=== PATIENT | male | born 1950 | race Caucasian/White ===

== ENCOUNTER 2021-03-17 09:46 | Outpatient (CLI) | payer MEDICARE, SELFPAY ==
[2021-03-17 10:13] LABS: Basophils Absolute Auto 0.02 K/mm3 (0.00-0.10); Basophils Percent Auto 0.3 % (0.0-1.0); Eosinophils Absolute Auto 0.18 K/mm3 (0.02-0.50); Eosinophils Percent Auto 2.8 % (1.0-6.0); Hematocrit 38.2 % (37.0-46.0); Hemoglobin 12.7 g/dL (12.4-15.3); Immature Granulocyte Absolute 0.02 K/mm3 (0.00-0.00); Immature Granulocyte Percent A 0.3 % (0.0-0.0); Lymphocytes Absolute Auto 1.71 K/mm3 (1.10-4.50); Lymphocytes Percent Auto 26.7 % (18.0-42.0); Mean Corpuscular HGB Conc 33.2 g/dL (32.0-36.0); Mean Corpuscular Hemoglobin 31.1 pg (27.0-31.0); Mean Corpuscular Volume 93.4 fL (78.0-102.0); Mean Platelet Volume 10.7 fl (8.7-11.0); Monocytes Absolute Auto 0.55 K/mm3 (0.10-0.90); Monocytes Percent Auto 8.6 % (2.0-11.0); Neutrophils Absolute Auto 3.9 K/mm3 (1.7-7.2); Neutrophils Percent Auto 61.3 % (50.0-70.0); Platelet Count Result 158 K/mm3 (150-420); Red Blood Count 4.09 M/mm3 (4.70-6.10); Red Cell Distribution Width 14.6 % (11.6-14.4); White Blood Count 6.4 K/mm3 (4.8-10.8)
[2021-03-17 10:15] VITALS: PULSE 80; O2SAT 97
[2021-03-17 10:18] VITALS: PULSE 69; O2SAT 86
[2021-03-17 10:21] LABS: Appearance Urine Clear (Clear); Bilirubin Urine Negative (Negative); Color Urine Light Yellow (Yellow); Glucose Urine UA Negative (Negative); Ketones Urine Negative (Negative); Leukocyte Esterase Ur Negative (Negative); Nitrate Urine Negative (Negative); Protein Urine Negative (Negative); Specific Grav Ur 1.015 (1.010-1.020); Urobilinogen Urine 0.2 mg/dL (0.2-1.0)
[2021-03-17 10:22] VITALS: PULSE 139; O2SAT 86
[2021-03-17 10:25] VITALS: PULSE 80; O2SAT 96
[2021-03-17 10:25] LABS: Hemoglobin A1C 9.9 % (<5.7)
[2021-03-17 10:31] LABS: Add Urine Microscopic? YES; Bacteria Urine None seen /hpf; Blood Urine Trace-Intact (Negative); WBC Urine None seen /hpf (0-3)
[2021-03-17 10:40] LABS: Creatinine Urine 65.23 mg/dL (40-278); MALB Creatinine Ratio 19.9 mg/g (0-30); Microalbumin Urine Random < 13.0 mg/L
[2021-03-17 10:56] LABS: Alanine Aminotransferase 14 U/L (16-63); Albumin Level 3.2 g/dL (3.4-5.0); Alkaline Phosphatase 78 U/L (46-116); Anion Gap 7 mmol/L (8-16); Aspartate Amino Transferase 19 U/L (15-37); Bilirubin,Total 0.5 mg/dL (0.00-1.00); Blood Urea Nitrogen 16 mg/dL (7-18); Calcium 8.3 mg/dL (8.5-10.1); Carbon Dioxide 29 mmol/L (21-32); Chloride 95 mmol/L (98-108); Estimated Glomerular Filt Rate 60; Glucose 276 mg/dL (70-99); Osmolality Calculated 283 mOsm/kg (285-295); Potassium 4.2 mmol/L (3.5-5.1); Sodium 131 mmol/L (136-145); Thyroid Stimulating Hormone 0.58 uIU/mL (0.36-3.74); Total Protein 7.2 g/dL (6.4-8.2)
--- NOTE | 2021-03-17 11:26 | HOMEO2EVAL ---
Evaluation was performed at [facility] Home Oxygen Evaluation RC: Home Oxygen (O2) Evaluation Start: 03/17/21 10:50 Freq: Status: Active Protocol: RPE Activity Type Activity Date Activity User E-Sign Co-Sign Detail Recorded Client Recorded Date Recorded By Document 03/17/21 10:15 JENNIFER [id number] 03/17/21 11:26 JENNIFER Document 03/17/21 10:18 JENNIFER [id number] 03/17/21 11:26 JENNIFER Document 03/17/21 10:22 JENNIFER [id number] 03/17/21 11:26 JENNIFER Document 03/17/21 10:25 JENNIFER [id number] 03/17/21 11:26 JENNIFER 03/17/21 03/17/21 03/17/21 10:15 10:18 10:22 Home O2 Evaluation Test Phase Resting Exercise Exercise Oxygen Delivery Room Air Room Air Nasal Cannula Oxygen Flow Rate (L/min) 1 Pulse Oximetry (90-100 %) 97 86 L 86 L Pulse Rate (60-100 beats/min) 80 69 139 H Activity Tolerance Fair Fair Rating of Perceived Dyspnea (PD) +3 Moderate +3 Moderate Difficulty, But Difficulty, But Can Continue Can Continue Rate of Perceived Exertion (PE) 15 Hard 16 Ambulation Distance (feet) 340 400 Ambulation Distance (meters) 103.62 121.91 Home Oxygen Evaluation Comments Will begin pt. c/o hip, will increase exercise on knee pain and oxygen to 2 lpm room air shortness of breath. PLB encouraged. Will add 1 lpm oxygen via nasal cannula Treatment Charges O2 Evaluation - Outpatient 03/17/21 10:25 Home O2 Evaluation Test Phase Exercise Oxygen Delivery Nasal Cannula Oxygen Flow Rate (L/min) 2 Pulse Oximetry (90-100 %) 96 Pulse Rate (60-100 beats/min) 80 Activity Tolerance Fair Rating of Perceived Dyspnea (PD) +3 Moderate Difficulty, But Can Continue Rate of Perceived Exertion (PE) 13 Somewhat Hard Ambulation Distance (feet) 50 Ambulation Distance (meters) 15.23 Home Oxygen Evaluation Comments Sp02 maintained >92% on 2 lpm. Treatment Charges
== END 2021-03-17 09:47 | disposition home or self-care (01) ==
PROVIDERS: PCP Family Medicine; Visit Provider Family Medicine
DX: J44.1 Chronic obstructive pulmonary disease with (acute) exacerbation (principal); E11.9 Type 2 diabetes mellitus without complications
CPT/HCPCS: 36415; 80053; 81001; 82043; 83036; 84443; 85025; 94618

== ENCOUNTER 2021-03-21 11:21 | Outpatient (CLI) | payer MEDICARE, SELFPAY ==
[2021-03-21 13:42] LABS: SARS-CoV-2 Ag Positive (Negative)
== END 2021-03-21 11:22 | disposition home or self-care (01) ==
LOC: CHSLAB 11:23
PROVIDERS: PCP Family Medicine; Visit Provider Family Medicine
DX: U07.1 COVID-19 (principal); R05.9 Cough, unspecified
CPT/HCPCS: 87426; C9803

== ENCOUNTER 2021-05-09 09:11 | Outpatient (RCR) | payer MEDICARE, SELFPAY | END 2021-06-08 23:59 | disposition home or self-care (01) | LOC: CHSWOUND 09:11 | PROVIDERS: PCP Family Medicine; Visit Provider Nurse Practitioner Family | DX: I89.0 Lymphedema, not elsewhere classified (principal); E11.9 Type 2 diabetes mellitus without complications; G20 Parkinson's disease; I50.9 Heart failure, unspecified; J44.9 Chronic obstructive pulmonary disease, unspecified | CPT/HCPCS: 99212; G0463 ==

== ENCOUNTER 2021-06-10 14:32 | Outpatient (CLI) | payer MEDICARE, SELFPAY ==
--- NOTE | ~2021-06-10 | XR_ITS ---
EXAMINATION: XR knee RT 3V DATE: 06/10/2021 15:02 INDICATION: Right knee pain. TECHNIQUE: 3 views of right knee were obtained. COMPARISON: None. FINDINGS: Bone alignment is normal. No fracture. There is mild tricompartmental osteoarthritis. There is chondrocalcinosis of the menisci. No knee joint effusion. IMPRESSION: 1. Mild right knee osteoarthritis. Reviewed, dictated and finalized at location B.
== END 2021-06-10 14:33 | disposition home or self-care (01) ==
LOC: CHSIMG 14:34
PROVIDERS: PCP Family Medicine; Visit Provider Family Medicine
DX: M25.561 Pain in right knee (principal)
CPT/HCPCS: 73562

== ENCOUNTER 2021-12-01 15:33 | Outpatient (CLI) | payer MEDICARE, SELFPAY ==
[2021-12-01 16:07] LABS: Basophils Absolute Auto 0.07 K/mm3 (0.00-0.10); Basophils Percent Auto 0.7 % (0.0-1.0); Eosinophils Percent Auto 2.9 % (1.0-6.0); Hematocrit 40.1 % (37.0-46.0); Hemoglobin 12.9 g/dL (12.4-15.3); Immature Granulocyte Absolute 0.03 K/mm3 (0.00-0.00); Immature Granulocyte Percent A 0.3 % (0.0-0.0); Lymphocytes Percent Auto 19.6 % (18.0-42.0); Mean Corpuscular HGB Conc 32.2 g/dL (32.0-36.0); Mean Corpuscular Hemoglobin 29.6 pg (27.0-31.0); Mean Platelet Volume 10.9 fl (8.7-11.0); Monocytes Absolute Auto 0.84 K/mm3 (0.10-0.90); Monocytes Percent Auto 8.2 % (2.0-11.0); Neutrophils Percent Auto 68.3 % (50.0-70.0); Platelet Count Result 195 K/mm3 (150-420); Red Blood Count 4.36 M/mm3 (4.70-6.10); Red Cell Distribution Width 14.6 % (11.6-14.4); White Blood Count 10.2 K/mm3 (4.8-10.8)
[2021-12-01 16:19] LABS: Hemoglobin A1C 8.6 % (<5.7)
[2021-12-01 16:26] LABS: Alanine Aminotransferase 14 U/L (16-63); Albumin Level 3.6 g/dL (3.4-5.0); Alkaline Phosphatase 70 U/L (46-116); Anion Gap 8 mmol/L (8-16); Aspartate Amino Transferase 18 U/L (15-37); Bilirubin,Total 0.8 mg/dL (0.00-1.00); Blood Urea Nitrogen 17 mg/dL (7-18); Calcium 8.5 mg/dL (8.5-10.1); Carbon Dioxide 30 mmol/L (21-32); Chloride 100 mmol/L (98-108); Estimated Glomerular Filt Rate 58; Glucose 165 mg/dL (70-99); Osmolality Calculated 291 mOsm/kg (285-295); Potassium 3.9 mmol/L (3.5-5.1); Sodium 138 mmol/L (136-145); Total Protein 7.4 g/dL (6.4-8.2)
[2021-12-01 16:45] LABS: Influenza A QL RT-PCR Negative (Negative); Influenza B QL RT-PCR Negative (Negative); SARS-CoV-2 RNA PCR Negative (Negative)
== END 2021-12-01 15:34 | disposition home or self-care (01) ==
LOC: CHSLAB 15:36
PROVIDERS: PCP Family Medicine; Visit Provider Family Medicine
DX: E11.9 Type 2 diabetes mellitus without complications (principal); R05.1 Acute cough; Z20.822 Contact with and (suspected) exposure to COVID-19
CPT/HCPCS: 36415; 80053; 83036; 85025; 87502; C9803; U0003; U0005

== ENCOUNTER 2022-05-11 12:12 | Outpatient (CLI) | payer MEDICARE, SELFPAY ==
--- NOTE | ~2022-05-11 | XR_ITS ---
EXAMINATION: XR ribs RT 2V w CXR 2V INDICATION: Right rib pain TECHNIQUE: PA and lateral views of the chest and 3 views of the right ribs were obtained on eight rad iographs. COMPARISON: None. FINDINGS: The lungs are free of acute opacities. Calcified pleural plaques are noted bilaterally. No pleural effusion or pneumothorax. The cardiomediastinal silhouette is normal. There are bridging oste ophytes at multiple levels in the spine, consistent with diffuse idiopathic skeletal hyperostosis (DI SH). No displaced rib fracture is identified. IMPRESSION: 1. No acute cardiopulmonary abnormality or evidence of displaced rib fracture. Calcified pleural jose ques which can be seen in the setting of prior asbestos exposure. Reviewed, dictated and finalized at location L. IMPRESSION: 1. No acute cardiopulmonary abnormality or evidence of displaced rib fracture. Calcified pleural plaques which can be seen in the setting of prior asbestos e xposure.
== END 2022-05-11 12:13 | disposition home or self-care (01) ==
LOC: CHSIMG 12:14
PROVIDERS: PCP Family Medicine; Visit Provider Family Medicine
DX: R07.89 Other chest pain (principal)
CPT/HCPCS: 71046; 71100

== ENCOUNTER 2022-06-22 13:55 | Outpatient (CLI) | payer MEDICARE, SELFPAY ==
--- NOTE | ~2022-06-22 | XR_ITS ---
EXAMINATION: XR elbow RT min 3V DATE: 06/22/2022 14:42 INDICATION: Right elbow pain and swelling TECHNIQUE: Anteroposterior, two oblique and lateral views of the right elbow were obtained. COMPARISON: None. FINDINGS: Alignment is normal. No fracture or joint effusion. Joint spaces are normal. Soft tissues are unremar kable. IMPRESSION: 1. Negative right elbow radiographs. Reviewed, dictated and finalized at location L.
[2022-06-22 14:29] LABS: Appearance Urine Clear (Clear); Bilirubin Urine Negative (Negative); Blood Urine Negative (Negative); Color Urine Light Yellow (Yellow); Glucose Urine UA Negative (Negative); Ketones Urine Negative (Negative); Leukocyte Esterase Ur Negative (Negative); Nitrate Urine Negative (Negative); Protein Urine Negative (Negative); Urobilinogen Urine 0.2 mg/dL (0.2-1.0)
[2022-06-22 14:31] LABS: Add Urine Microscopic? NO
[2022-06-22 15:54] LABS: Anion Gap 8 mmol/L (8-16); Blood Urea Nitrogen 21 mg/dL (7-18); Carbon Dioxide 32 mmol/L (21-32); Chloride 97 mmol/L (98-108); Potassium 4.4 mmol/L (3.5-5.1); Sodium 137 mmol/L (136-145)
[2022-06-22 15:55] LABS: Alanine Aminotransferase 10 U/L (16-63); Aspartate Amino Transferase 16 U/L (15-37); Calcium 9.2 mg/dL (8.5-10.1); Creatine Kinase 87 U/L (39-308); Estimated Glomerular Filt Rate 48; Glucose 127 mg/dL (70-99); Osmolality Calculated 289 mOsm/kg (285-295); Troponin I 7.3 ng/L (0.00-60.4)
[2022-06-22 15:56] LABS: Albumin Level 3.6 g/dL (3.4-5.0); Alkaline Phosphatase 58 U/L (46-116); Total Protein 8.4 g/dL (6.4-8.2)
[2022-06-22 16:00] LABS: Basophils Absolute Auto 0.05 K/mm3 (0.00-0.10); Basophils Percent Auto 0.5 % (0.0-1.0); Eosinophils Absolute Auto 0.25 K/mm3 (0.02-0.50); Eosinophils Percent Auto 2.6 % (1.0-6.0); Hematocrit 41.6 % (37.0-46.0); Hemoglobin 13.6 g/dL (12.4-15.3); Immature Granulocyte Absolute 0.03 K/mm3 (0.00-0.00); Immature Granulocyte Percent A 0.3 % (0.0-0.0); Lymphocytes Absolute Auto 2.32 K/mm3 (1.10-4.50); Lymphocytes Percent Auto 24.2 % (18.0-42.0); Mean Corpuscular HGB Conc 32.7 g/dL (32.0-36.0); Mean Corpuscular Hemoglobin 30.6 pg (27.0-31.0); Mean Corpuscular Volume 93.7 fL (78.0-102.0); Monocytes Percent Auto 8.3 % (2.0-11.0); Neutrophils Absolute Auto 6.2 K/mm3 (1.7-7.2); Neutrophils Percent Auto 64.1 % (50.0-70.0); Platelet Count Result 214 K/mm3 (150-420); Red Blood Count 4.44 M/mm3 (4.70-6.10); Red Cell Distribution Width 14.3 % (11.6-14.4); White Blood Count 9.6 K/mm3 (4.8-10.8)
[2022-06-27 15:43] LABS: T4 Thyroxine 10.2 mcg/dL (5.9-10.3)
== END 2022-06-22 13:56 | disposition home or self-care (01) ==
LOC: CHSLAB 13:57
PROVIDERS: PCP Family Medicine; Visit Provider Family Medicine
DX: R07.9 Chest pain, unspecified (principal); M25.521 Pain in right elbow; R94.6 Abnormal results of thyroid function studies
CPT/HCPCS: 36415; 73080; 80053; 81003; 82550; 82553; 84436; 84443; 84484; 85025

== ENCOUNTER 2023-05-29 12:07 | Outpatient (CLI) | payer MEDICARE, SELFPAY ==
--- NOTE | ~2023-05-29 | XR_ITS ---
Lumbosacral Spine: AP and lateral views Clinical History: Pain Findings: The normal lordotic curve is maintained. The vertebral bodies and posterior elements are i ntact. There is mild degenerative disc narrowing at L3-L4 and L4-L5. There is moderate to severe face t arthropathy, worst at L4-L5 and L5-S1. The sacroiliac joints are normally outlined. Bilaterally ves keiko stents are present. Impression: Degenerative changes, as above. Reviewed, dictated and finalized at location M. Impression: Degenerative changes, as above.
== END 2023-05-29 12:08 | disposition home or self-care (01) ==
LOC: CHSIMG 12:11
PROVIDERS: PCP Family Medicine; Visit Provider Family Medicine
DX: M54.42 Lumbago with sciatica, left side (principal)
CPT/HCPCS: 72100